=== PATIENT | female | born 1960 | race Caucasian/White ===

== ENCOUNTER → 2020-02-10 13:11 | Outpatient (CLI) | payer OTHER, SELFPAY ==
--- NOTE | 2020-02-10 13:15 | DI.MRI.S_ITS ---
PROCEDURE: MR ANKLE RT WO CON INDICATIONS: Sprain of unspecified ligament of unspecified ankle, initial TECHNIQUE: Noncontrast sagittal T1 spin echo and T2 fast spin echo with fat saturation, axial proton density fast spin echo and T2 fast spin echo with fat saturation, coronal T1 spin echo and T2 fast spin echo with fat saturation through the ankle/hindfoot. COMPARISON: None. FINDINGS: Image quality: Excellent. Bones and joints: No bone marrow contusions or fractures. Midfoot joint degeneration. No hindfoot coalitions. No osteochondral injuries of the talar dome. No pathologic joint effusions. Medial structures: Posterior tibialis intact. Posterior tibialis tenosynovitis noted. Flexor digitorum longus intact. Flexor hallucis longus tendon intact. The posterior tibial neurovascular bundle appears normal within the tarsal tunnel, without extrinsic mass effect. Deltoid ligament complex appears intact. The spring ligament appears intact. Lateral structures: Anterior talofibular ligament is not well seen and probably ruptured although this finding likely chronic at the absence of soft tissue edema.. Calcaneofibular ligament intact. Posterior talofibular ligament intact. Anterior and posterior tibiofibular ligaments appear intact, as is the intermalleolar ligament. Tibiofibular syndesmosis is normal in width at 2 mm or less. Peroneus longus tendinopathy mild thickening. Peroneus brevis appears grossly intact. There is severe diffuse peroneal tenosynovitis. Bony peroneal tubercle and retrotrochlear prominence are normal in size. Sinus tarsi demonstrates normal fatty signal, without edema, fibrosis, or cyst formation. Anterior structures: Tibialis anterior intact. Extensor hallucis longus intact. Extensor digitorum longus tendon intact. Dorsal talonavicular ligament appears intact. Posterior and plantar structures: Achilles tendon is intact. Medial and lateral bands of the plantar fascia intact. No abductor digiti quinti muscle atrophy to suggest Odom neuropathy. IMPRESSION: Severe diffuse peroneal tenosynovitis. Mild peroneus longus tendinopathy. Mild posterior tibialis tenosynovitis. 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 Dictated by: Pranay Mckeon M.D. on 02/10/2020 at 15:20 Approved by: Pranay Mckeon M.D. on 02/10/2020 at 15:27
--- NOTE | 2020-02-10 13:15 | DI.MRI.S_ITS ---
PROCEDURE: MR FOOT RT WO CON INDICATIONS: Sprain of unspecified ligament of unspecified ankle, initial TECHNIQUE: Noncontrast sagittal T1 spin echo and T2 fast spin echo with fat saturation, long-axis T1 spin echo and T2 fast spin echo with fat saturation, short-axis T1 spin echo and T2 fast spin echo with fat saturation through the forefoot. COMPARISON: None. FINDINGS: Image quality: Excellent. Bones and joints: No bone marrow contusions or metatarsal stress fractures. Diffuse midfoot joint degeneration. The sesamoid bones appear in expected positions, without internal edema. Moderate 1st MTP joint degeneration with associated joint effusion Soft tissues: The visualized plantar foot muscles demonstrate normal signal and bulk. Visualized flexor and extensor tendons appear intact, without tenosynovitis. The distal insertions of the peroneus brevis and longus tendons appear intact. The principal Lisfranc ligament appears intact. No soft tissue ganglion cysts or bursal fluid collections. Sagittal images demonstrate no evidence for plantar plate tears. Partially visualized distal peroneus longus and brevis tenosynovitis. IMPRESSION: Midfoot joint degeneration. Moderate 1st MTP joint degeneration Dictated by: Pranay Mckeon M.D. on 02/10/2020 at 15:27 Approved by: Pranay Mckeon M.D. on 02/10/2020 at 15:48
== END ==
PROVIDERS: PCP Family Medicine; Referring Provider Family Medicine; Visit Provider Family Medicine
DX: S93.409A Sprain of unspecified ligament of unspecified ankle, initial encounter (principal); M65.871 Other synovitis and tenosynovitis, right ankle and foot; M19.071 Primary osteoarthritis, right ankle and foot; M20.60 Acquired deformities of toe(s), unspecified, unspecified foot
CPT/HCPCS: 73718; 73721